=== PATIENT | female | born 1990 | race Caucasian/White ===

== ENCOUNTER 2024-06-08 10:51 | Outpatient (CLI) | payer BC ==
[2024-06-08 11:50] LABS: BHCG - Serum Negative (NEGATIVE); Pregs Control Background? CLEAR/WHITE (CLR/WHITE); Pregs Control Bar Appear? YES (CONTROL BAR)
[2024-06-08 11:53] LABS: #Basophils 0.06 10x3/uL (0.0-0.2); #Eosinophils 0.29 10x3/uL (0.0-0.5); #Monocytes 0.97 10x3/uL (0.0-1.1); #Neutrophils 6.75 10x3/uL (1.5-8.4); %Basophils 0.5 % (0.0-2.0); %Eosinophils 2.6 % (0.0-6.0); %Lymphocytes 26.5 % (18.0-47.0); %Monocytes 8.8 % (0.0-10.0); %Neutrophils 61.4 % (40.0-75.0); Hematocrit 39.1 % (34.9-44.5); Hemoglobin 13.2 g/dL (12.0-15.5); Mean Corpuscular HGB CONC 33.8 g/dL (32.0-36.0); Mean Corpuscular Volume 88.9 fL (81.6-98.3); Mean Platelet Volume 8.6 fL (7.4-10.4); Platelet Count 363 10x3/uL (150-450); RBC Distribution Width 12.5 % (11.5-14.5)
== END 2024-06-08 10:52 | disposition home or self-care (01) ==
LOC: CSHLAB 10:51
PROVIDERS: ATTEND Surgery
DX: Z01.812 Encounter for preprocedural laboratory examination (principal); K64.8 Other hemorrhoids
CPT/HCPCS: 84703; 85025

== ENCOUNTER 2024-06-11 05:45 | Day surgery (SDC) | payer BC ==
[2024-06-08 11:20] VITALS: BMI 23.2
[2024-06-11] MEDS ORDERED: Bupivacaine HCl 0.5%/Epinephrine 1:200,000/PF 30 ml Vial ONE (07:14)
[2024-06-11] MEDS ORDERED: ceFOXitin 1 GM VIAL ONE (07:15)
[2024-06-11] MEDS ORDERED: Triple Antibiotic Oint 1 GM Packet ONE (07:15)
[2024-06-11] MEDS ORDERED: Midazolam HCl 2 mg/2 ml Vial ONE (07:18)
[2024-06-11] MEDS ORDERED: Rocuronium Bromide 10 MG/ML (10ML VIAL) ONE (07:24)
[2024-06-11] MEDS ORDERED: Lidocaine 1% PF 5 ML VIAL ONE (07:24)
[2024-06-11] MEDS ORDERED: PROPOFOL 20 ML ONE (07:24)
[2024-06-11] MEDS ORDERED: Fentanyl 250 MCG/5 ML VIAL ONE (07:24)
[2024-06-11] MEDS ORDERED: Ondansetron PF 4 MG/2 ML Vial ONE (07:24)
[2024-06-11] MEDS ORDERED: Dexamethasone 20 MG/5 ML VIAL ONE (07:24)
[2024-06-11] MEDS ORDERED: CEFAZOLIN 2 GM VIAL ONE (07:30)
[2024-06-11] MEDS ORDERED: Mupirocin 2% Ointment 22 GM Tube ONE (07:55)
[2024-06-11] MEDS ORDERED: SUGAMMADEX SODIUM 200 MG/2 ML VIAL ONE (07:56)
[2024-06-11] MEDS ORDERED: Ketorolac Tromethamine 30 MG (1 mL) VIAL ONE (07:56)
[2024-06-11] MEDS ORDERED: fentaNYL 50 mcg/mL 1 mL Vial ONE (08:29)
[2024-06-11] MEDS ORDERED: HYDROcodone/Acetaminophen 5/325 mg Tablet ONE (09:24)
== END 2024-06-11 09:53 | disposition home or self-care (01) ==
LOC: CSHSDC 05:45
PROVIDERS: ATTEND Surgery
PROC: 06BY4ZC Excision of Hemorrhoidal Plexus, Percutaneous Endoscopic Approach (ICD-10-PCS; principal; 2024-06-11)
DX: K64.2 Third degree hemorrhoids (principal); F17.200 Nicotine dependence, unspecified, uncomplicated; F41.9 Anxiety disorder, unspecified; F32.A Depression, unspecified; Z79.899 Other long term (current) drug therapy
CPT/HCPCS: 88304; J0694; J1100; J1885; J2250; J2405; J2704; J3010